=== PATIENT | male | born 1945 | race Caucasian/White ===

== ENCOUNTER 2018-11-11 10:24 | Day surgery (SDC) | payer MEDICARE, OTHER ==
[~2018-11-11] VITALS: Ht 170.2 cm; Wt 76.6 kg
[~2018-11-11 10:24] MED LIST: ASPI325; ASPI325 PO; ASPI81CH PO; ATEN25 PO; ATOR80 PO; CLOP75 PO; FISH1000 PO; FLUO20 PO; HYDACE5 PO; LISHYD2025 PO; LISI20 PO; LISI5 PO; METO50 PO; NAPR500 PO; POTCHL20ER PO; SIMV40 PO
[2018-11-11] MEDS ORDERED: HYDCHL12.5 PO (10:47)
--- NOTE | 2018-11-11 12:06 | NUR ---
11/11/18 1206 Dana Ashley DELAYED ENTRY DR. GRIMES TO BEDSIDE TO CONSULT WITH PATIENT & SPOUSE REGARDING SHOULDER BLOCK. SPOUSE ESCORTED TO LOBBY. 1131: DR. GRIMES POSITIONING PATIENT RIGHT LATERAL, W/SINGLE PILLOW ROLLED UNDER PT SHOULDER. SONOSITE UTILIZED FOR NERVE LOCATION. UNDER DR. GRIMES ORDERS, NURSE [facility] ASSISTED WITH MARCAINE ADMINISTRATION. 25ML MARCAINE 1:200,000 ADMINISTERED. 02 SAT MONITOR ON PATIENT THROUGHOUT PROCEDURE, VSS. 1135: PROCEDURE COMPLETED. EXCESS LUBRICANT WIPED FROM PT NECK.
== END 2018-11-11 15:11 | disposition home or self-care (01) ==
LOC: ORSCSDS 10:24
PROVIDERS: Orthopaedic Surgery
PROC: 0RBK4ZZ Excision of Left Shoulder Joint, Percutaneous Endoscopic Approach (ICD-10-PCS; principal; 2018-11-11 11:30)
PROC: 0RNK4ZZ Release Left Shoulder Joint, Percutaneous Endoscopic Approach (ICD-10-PCS; principal; 2018-11-11 11:30)
PROC: 0LQ24ZZ Repair Left Shoulder Tendon, Percutaneous Endoscopic Approach (ICD-10-PCS; principal; 2018-11-11 11:30)
PROC: 0LS24ZZ Reposition Left Shoulder Tendon, Percutaneous Endoscopic Approach (ICD-10-PCS; principal; 2018-11-11 11:30)
DX: M75.122 Complete rotator cuff tear or rupture of left shoulder, not specified as traumatic (principal); S46.112A Strain of muscle, fascia and tendon of long head of biceps, left arm, initial encounter; M75.42 Impingement syndrome of left shoulder; I25.10 Atherosclerotic heart disease of native coronary artery without angina pectoris; I25.2 Old myocardial infarction; Z79.899 Other long term (current) drug therapy; Z79.82 Long term (current) use of aspirin
CPT/HCPCS: C1713; J0171; J0690; J1100; J1885; J2250; J2405; J3010; J7120

== ENCOUNTER 2019-12-02 17:14 | Emergency (ER) | payer OTHER, MEDICARE ==
[~2019-12-02] VITALS: Ht 167.6 cm; Wt 73.9 kg
[~2019-12-02 17:14] MED LIST changes: +HYDCHL12.5 PO
[2019-12-02 18:11] LABS: BASOPHILS ABSOLUTE AUTO 0.04 K/mm3 (0.00-0.23); BASOPHILS PERCENT AUTO 1 % (0-2); EOSINOPHILS PERCENT AUTO 2 % (0-6); Hematocrit 40.4 % (37.0-53.0); Hemoglobin 13.8 g/dL (13.5-17.5); IMMATURE GRAN ABSOLUTE AUTO 0.01 K/mm3 (0.00-0.10); IMMATURE GRAN PERCENT AUTO 0 % (0-1); LYMPHOCYTES ABSOLUTE AUTO 0.83 K/mm3 (0.84-5.20); LYMPHOCYTES PERCENT AUTO 15 % (21-46); MONOCYTES ABSOLUTE AUTO 0.82 K/mm3 (0.16-1.47); MONOCYTES PERCENT AUTO 15 % (4-13); Mean Corpuscular HGB 32.9 pg (26.0-34.0); Mean Corpuscular HGB Conc 34.2 g/dL (31.5-36.5); Mean Corpuscular Volume 96 fL (80-100); Mean Platelet Volume 8.3 fL (9.1-12.4); NEUTROPHILS ABSOLUTE AUTO 3.62 K/mm3 (1.96-9.15); NEUTROPHILS PERCENT AUTO 67 % (41-73); Platelet Count 186 K/mm3 (150-400); RDW Standard Deviation 46.2 fL (35.1-46.3); Red Blood Cell Count 4.19 M/mm3 (4.30-5.90); White Blood Cell Count 5.42 K/mm3 (4.00-11.30)
[2019-12-02 18:35] LABS: Alanine Aminotransfer (ALT/SGP 36 U/L (12-78); Albumin, Blood 4.2 g/dL (3.4-5.0); Albumin/Globulin Ratio 1.4 (0.8-1.8); Alk Phos 60 U/L (50-136); Anion Gap 6 mmol/L (6-16); Aspartate Aminotrans (AST/SGOT 29 U/L (12-37); Bilirubin, Total 0.8 mg/dL (0.1-1.0); Blood Urea Nitrogen 24 mg/dL (8-24); Bun/Creatinine Ratio 23.3 (12.0-20.0); CO2, Blood 27 mmol/L (21-32); Calcium, Blood 9.2 mg/dL (8.5-10.1); Chloride, Blood 106 mmol/L (98-108); Creatinine, Blood 1.03 mg/dL (0.60-1.20); Glomerular Filtration Rate >60 (60-); Glucose, Blood 99 mg/dL (70-99); Sodium, Blood 139 mmol/L (136-145); Total Protein, Blood 7.2 g/dL (6.4-8.2); Troponin I <0.015 ng/mL (0.000-0.040)
[2019-12-02] MEDS ORDERED: ATOR20 PO (20:32)
== END 2019-12-02 22:00 | disposition home or self-care (01) ==
LOC: ER 17:14
PROVIDERS: Physician Assistant
DX: R00.2 Palpitations (principal); I10 Essential (primary) hypertension; I25.10 Atherosclerotic heart disease of native coronary artery without angina pectoris; Z79.899 Other long term (current) drug therapy; Z79.82 Long term (current) use of aspirin
CPT/HCPCS: 36415; 71046; 80053; 84484; 85025; 93005; 93010; 99284-25

== ENCOUNTER 2022-01-03 06:14 | Day surgery (SDC) | payer MEDICARE, OTHER ==
[~2022-01-03] VITALS: Ht 165.1 cm; Wt 73.3 kg
[~2022-01-03 06:14] MED LIST changes: +ATOR20 PO; +FLOMAX0.4 MG PO; +TAMS.4ER PO
--- NOTE | 2022-01-03 11:34 | NUR ---
PT TOLERATING PO FLUIDS AND SOLIDS, REQUESTING TO GO HOME. PT [id number].
--- NOTE | 2022-01-03 12:03 | NUR ---
PT APPREHENSIVE ABOUT BEING DISCHARGED, STATED CONCERNS ABOUT HAVING INCISION SITES ON ABDOMEN. NURSE PROVIDED COMFORT AND EDUCATION AT BEDSIDE ABOUT INCISION SITES, AND HOW TO WATCH FOR INFECTION. Patient up to Ambulate independently. Gait steady. Discharge instructions reviewed with patient. Patient verbalizes understanding. Copy given to patient to take home. Dressings x3 to procedure site clean, dry, intact with no visible drainage, swelling, erythema or bruising noted. Patient States Post-Procedure ride home has been arranged. Discharged via wheelchair to private car for ride home. ALL BELONGINGS RETURNED TO PATIENT THAT HE CAME TO STEP DOWN UNIT WITH TO INCLUDE TWO HEARING AIDS AND ONE GOLD [place] BAND.
== END 2022-01-03 23:05 | disposition home or self-care (01) ==
LOC: ORSCMMR 06:14 → ORD 07:30 → ORSCMMR 07:30
DX: K40.20 Bilateral inguinal hernia, without obstruction or gangrene, not specified as recurrent (principal); K42.9 Umbilical hernia without obstruction or gangrene; I10 Essential (primary) hypertension; I25.10 Atherosclerotic heart disease of native coronary artery without angina pectoris; K21.9 Gastro-esophageal reflux disease without esophagitis; I25.2 Old myocardial infarction; Z79.899 Other long term (current) drug therapy; Z79.82 Long term (current) use of aspirin
CPT/HCPCS: 49650; 49585; S2900; A9270; C1781; J0690; J1100; J2250; J2370; J2405; J2704; J3010; J7120